=== PATIENT | male | born 1970 | race American Indian/Alaskan Native ===

== ENCOUNTER 2019-07-28 08:09 | Emergency (ER) | payer OTHER ==
[2019-07-28 08:18] VITALS: BP 174/123
--- NOTE | 2019-07-28 08:34 | Emergency Department Report ---
ED ENT HPI - General Chief complaint: Dental/Oral Stated complaint: LFT SIDE FACE/ LFT ARM PAIN Time Seen by Provider: 07/28/19 08:28 Source: patient Mode of arrival: Ambulatory Limitations: No Limitations - History of Present Illness Initial comments: This is a 49-year-old male nontoxic, well nourished in appearance, no acute signs of distress presents to the ED with c/o of left sided facial swelling that has resolved today. Patient stated that this morning he woke up around 1 AM and noticed some swelling to the left facial area but has since then resolved. Patient denies any dental pain or pain in the facial area. Patient also has a secondary complaint of left shoulder pain after heavy lifting. Patient denies any trauma or injuries. Denies decreased range of motion. Patient denies any facial swelling currently. Patient denies any numbness, tingling, fever, chills, headache, stiff neck, abdominal pain, chest pain, shortness of breath. Patient denies any drug allergies. -: This morning Severity scale (0 -10): 0 Consistency: now resolved Improves with: none Worsens with: none Associated Symptoms: denies: fever, cough, gum swelling, toothache, pain with swallowing, sore throat, tinnitus, hearing loss, discharge from ear, rhinorrhea - Related Data Previous Rx's Medication Instructions Recorded Last Taken Type ALBUTEROL Inhaler (OR & NICU) 1 puff IH QID PRN #1 inha 05/19/16 Unknown Rx [ProAir HFA Inhaler] Aspirin [Aspirin BABY CHEW TAB] 81 mg PO QDAY #30 tab.chew 05/19/16 Unknown Rx Lisinopril [Zestril] 40 mg PO QDAY #30 tablet 05/19/16 Unknown Rx Simvastatin [Zocor TAB] 10 mg PO QHS #30 tablet 05/19/16 Unknown Rx amLODIPine 5 mg PO DAILY #30 tablet 05/19/16 Unknown Rx hydroCHLOROthiazide [Hctz] 12.5 mg PO QDAY #30 capsule 05/19/16 Unknown Rx Cyclobenzaprine [Flexeril] 10 mg PO QHS PRN #10 tablet 07/28/19 Unknown Rx Naproxen 500 mg PO Q12H PRN #12 tablet 07/28/19 Unknown Rx Allergies Allergy/AdvReac Type Severity Reaction Status Date / Time No Known Allergies Allergy Verified 07/28/19 08:12 ED Dental HPI - General Chief complaint: Dental/Oral Stated complaint: LFT SIDE FACE/ LFT ARM PAIN Time Seen by Provider: 07/28/19 08:28 Source: patient Mode of arrival: Ambulatory Limitations: No Limitations - Related Data Previous Rx's Medication Instructions Recorded Last Taken Type ALBUTEROL Inhaler (OR & NICU) 1 puff IH QID PRN #1 inha 05/19/16 Unknown Rx [ProAir HFA Inhaler] Aspirin [Aspirin BABY CHEW TAB] 81 mg PO QDAY #30 tab.chew 05/19/16 Unknown Rx Lisinopril [Zestril] 40 mg PO QDAY #30 tablet 05/19/16 Unknown Rx Simvastatin [Zocor TAB] 10 mg PO QHS #30 tablet 05/19/16 Unknown Rx amLODIPine 5 mg PO DAILY #30 tablet 05/19/16 Unknown Rx hydroCHLOROthiazide [Hctz] 12.5 mg PO QDAY #30 capsule 05/19/16 Unknown Rx Cyclobenzaprine [Flexeril] 10 mg PO QHS PRN #10 tablet 07/28/19 Unknown Rx Naproxen 500 mg PO Q12H PRN #12 tablet 07/28/19 Unknown Rx Allergies Allergy/AdvReac Type Severity Reaction Status Date / Time No Known Allergies Allergy Verified 07/28/19 08:12 ED Review of Systems ROS: Stated complaint: LFT SIDE FACE/ LFT ARM PAIN Other details as noted in HPI Constitutional: denies: chills, fever Eyes: denies: eye pain, eye discharge, vision change ENT: denies: ear pain, throat pain Respiratory: denies: cough, shortness of breath, wheezing Cardiovascular: denies: chest pain, palpitations Endocrine: no symptoms reported Gastrointestinal: denies: abdominal pain, nausea, diarrhea Genitourinary: denies: urgency, dysuria Musculoskeletal: arthralgia. denies: back pain, joint swelling Skin: denies: rash, lesions Neurological: denies: headache, weakness, paresthesias Psychiatric: denies: anxiety, depression Hematological/Lymphatic: denies: easy bleeding, easy bruising ED Past Medical Hx - Past Medical History Previous Medical History?: Yes Hx Hypertension: Yes Hx Congestive Heart Failure: No Hx Diabetes: No Hx Asthma: Yes Hx COPD: No - Surgical History Additional Surgical History: back surgery - Social History Smoking Status: Current Every Day Smoker Substance Use Type: Alcohol - Medications Home Medications: Home Medications Medication Instructions Recorded Confirmed Last Taken Type ALBUTEROL Inhaler (OR & NICU) 1 puff IH QID PRN #1 inha 05/19/16 Unknown Rx [ProAir HFA Inhaler] Aspirin [Aspirin BABY CHEW TAB] 81 mg PO QDAY #30 tab.chew 05/19/16 Unknown Rx Lisinopril [Zestril] 40 mg PO QDAY #30 tablet 05/19/16 Unknown Rx Simvastatin [Zocor TAB] 10 mg PO QHS #30 tablet 05/19/16 Unknown Rx amLODIPine 5 mg PO DAILY #30 tablet 05/19/16 Unknown Rx hydroCHLOROthiazide [Hctz] 12.5 mg PO QDAY #30 capsule 05/19/16 Unknown Rx Cyclobenzaprine [Flexeril] 10 mg PO QHS PRN #10 tablet 07/28/19 Unknown Rx Naproxen 500 mg PO Q12H PRN #12 tablet 07/28/19 Unknown Rx ED Physical Exam - General Limitations: No Limitations General appearance: alert, in no apparent distress - Head Head exam: Present: atraumatic, normocephalic - Eye Eye exam: Present: normal appearance, PERRL, EOMI - ENT ENT exam: Present: normal exam, normal orophraynx, other (no facial swelling. no abscess. no cellultis. uvula midline.) - Neck Neck exam: Present: normal inspection, full ROM. Absent: tenderness, meningismus, lymphadenopathy - Respiratory Respiratory exam: Present: normal lung sounds bilaterally. Absent: respiratory distress, wheezes, rales, rhonchi, stridor, chest wall tenderness, accessory muscle use, decreased breath sounds, prolonged expiratory - Cardiovascular Cardiovascular Exam: Present: regular rate, normal rhythm, normal heart sounds - Extremities Exam Extremities exam: Present: normal inspection, full ROM, tenderness, normal capillary refill. Absent: joint swelling, calf tenderness - Expanded Upper Extremity Exam Left General: Present: normal inspection Shoulder Exam: Present: normal inspection, full ROM, tenderness (deltoid muscle area). Absent: swelling, abrasion, laceration, ecchymosis, deformity, crepidus, dislocation, erythema, tenderness over AC joint Upper Arm exam: Present: normal inspection, full ROM. Absent: tenderness, swelling Elbow exam: Present: normal inspection. Absent: full ROM, tenderness, swelling Forearm Wrist exam: Present: normal inspection, full ROM. Absent: tenderness, swelling Hand Wrist exam: Present: normal inspection, full ROM. Absent: tenderness, swelling Vascular: Present: vascular compromise, normal capillary refill - Back Exam Back exam: Present: normal inspection, full ROM. Absent: tenderness, CVA tenderness (R), CVA tenderness (L), muscle spasm, paraspinal tenderness, rash noted - Neurological Exam Neurological exam: Present: alert, oriented X3, normal gait - Psychiatric Psychiatric exam: Present: normal affect, normal mood - Skin Skin exam: Present: warm, dry, intact, normal color. Absent: rash ED Course Vital Signs 07/28/19 08:16 Temperature 98.4 F Pulse Rate 71 Respiratory 18 Rate Blood Pressure 174/123 O2 Sat by Pulse 95 Oximetry - Reevaluation(s) Reevaluation #1: 07/28/19 08:54 Patient is speaking in full sentences with no signs of distress noted. ED Medical Decision Making - Medical Decision Making This is a 49-year-old male that presents with left muscle strain in the shoulder area. Patient is stable and was examined by me. Facial examination is within normal limits. Patient stated symptoms has resolved. I will treat patient with Flexeril and Motrin. He was instructed not to operate any machinery while taking Flexeril as this may cause drowsiness. Patient was instructed to Follow- up with a primary care doctor in 3-5 days or if symptoms worsen and continue return to emergency room as soon as possible. At time of discharge, the patient does not seem toxic or ill in appearance. No acute signs of distress noted. Patient agrees to discharge treatment plan of care. No further questions noted by the patient. Critical care attestation.: If time is entered above; I have spent that time in minutes in the direct care of this critically ill patient, excluding procedure time. ED Disposition Clinical Impression: Muscle strain of left shoulder Qualifiers: Encounter type: initial encounter Qualified Code(s): S46.912A - Strain of unspecified muscle, fascia and tendon at shoulder and upper arm level, left arm, initial encounter Disposition: TO HOME OR SELFCARE Is pt being admited?: No Does the pt Need Aspirin: No Condition: Stable Instructions: Muscle Strain (ED), Cyclobenzaprine (By mouth) Additional Instructions: Follow-up with a primary care doctor in 3-5 days or if symptoms worsen and continue return to emergency room as soon as possible. Take ibuprofen and Flexeril as prescribed. Do not operate heavy machinery while taking Flexeril due to sedation Prescriptions: Cyclobenzaprine [Flexeril] 10 mg PO QHS PRN #10 tablet PRN Reason: Muscle Spasm Naproxen 500 mg PO Q12H PRN #12 tablet PRN Reason: Pain , Severe (7-10) Referrals: PRIMARY CAREMD [Primary Care Provider] - 3-5 Days ROMA GONZALEZ MD [Staff Physician] - 3-5 Days FABRIZIO WILSON MD [Staff Physician] - 3-5 Days [facility] [Outside] - 3-5 Days Forms: Work/School Release Form(ED)
== END 2019-07-28 09:03 | disposition home or self-care (01) ==
LOC: ED 08:09
DX: S46.912A Strain of unspecified muscle, fascia and tendon at shoulder and upper arm level, left arm, initial encounter (principal); I10 Essential (primary) hypertension; F17.200 Nicotine dependence, unspecified, uncomplicated; J45.909 Unspecified asthma, uncomplicated; Z98.890 Other specified postprocedural states; Z79.899 Other long term (current) drug therapy; X50.0XXA Overexertion from strenuous movement or load, initial encounter; Y93.89 Activity, other specified; Y92.89 Other specified places as the place of occurrence of the external cause; Y99.8 Other external cause status
CPT/HCPCS: 99282

== ENCOUNTER 2020-01-27 17:44 | Inpatient (IN) | payer OTHER ==
--- NOTE | 2020-01-27 17:54 | Emergency Department Report ---
ED Neuro Deficit HPI - General Stated Complaint: STROKE Time Seen by Provider: 01/27/20 17:51 Source: EMS Mode of arrival: Stretcher - History of Present Illness Initial Comments: 49-year-old male with history of hypertension, borderline diabetes, presents to ED with headache and left-sided weakness. Patient states approximately 45 minutes ago after eating barbecue ribs, patient began to have a left-sided headache that radiated down to the back of his left shoulder. Patient reportedly told his that he felt like he was having a stroke. Spoke w/ patient's over the phone (Yfn Sanchez [phone]). states patient closes eyes and started "flinching." When asked if he like a seizure, was unable to say whether or not it was. states he was minimally responsive during this time but states his eyes were open. No history of CVA in the past. Patient is not currently on blood thinners, only aspirin. Patient was transported to ED by EMS, with systolic 200s. Patient now reports that his headache is mostly resolved. States that his and weakness have both resolved as well. Patient states his headache was initially 8 out of 10, currently 4 out of 10. Patient with negative ROS for all COVID-19 questioning (fever, sore throat, cough, shortness of breath, loss of smell or taste, vomiting or diarrhea, known exposure to anyone who has tested positive). -: minutes(s) (45) Location: left arm Presenting Symptoms: Present: Weak/Paralyzed One Side History of same: No Place: home Severity: severe Quality: weak, tingling Improves With: none Worsens With: none On Anticoagulants: No Associated Symptoms: denies: cough, fever/chills - Related Data Home Medications: Previous Rx's Medication Instructions Recorded Last Taken Type Albuterol INH(or & Nicu Only) 1 puff IH QID PRN #1 inha 05/19/16 Unknown Rx [ProAir HFA Inhaler] Aspirin [Aspirin BABY CHEW TAB] 81 mg PO QDAY #30 tab.chew 05/19/16 Unknown Rx Lisinopril [Zestril] 40 mg PO QDAY #30 tablet 05/19/16 Unknown Rx Simvastatin [Zocor TAB] 10 mg PO QHS #30 tablet 05/19/16 Unknown Rx amLODIPine 5 mg PO DAILY #30 tablet 05/19/16 Unknown Rx hydroCHLOROthiazide [Hctz] 12.5 mg PO QDAY #30 capsule 05/19/16 Unknown Rx Cyclobenzaprine [Flexeril] 10 mg PO QHS PRN #10 tablet 07/28/19 Unknown Rx Naproxen 500 mg PO Q12H PRN #12 tablet 07/28/19 Unknown Rx Allergies/Adverse Reactions: Allergies Allergy/AdvReac Type Severity Reaction Status Date / Time No Known Allergies Allergy Verified 01/27/20 18:24 ED Review of Systems ROS: Stated complaint: STROKE Other details as noted in HPI Comment: All other systems reviewed and negative Constitutional: denies: chills, fever ENT: denies: throat pain Respiratory: denies: cough, shortness of breath Cardiovascular: denies: chest pain Gastrointestinal: denies: vomiting, diarrhea Neurological: headache, paresthesias ED Past Medical Hx - Past Medical History Hx Hypertension: Yes Hx Congestive Heart Failure: No Hx Diabetes: No Hx Asthma: Yes Hx COPD: No - Surgical History Additional Surgical History: back surgery - Social History Smoking Status: Current Every Day Smoker Substance Use Type: Alcohol - Medications Home Medications: Home Medications Medication Instructions Recorded Confirmed Last Taken Type Albuterol INH(or & Nicu Only) 1 puff IH QID PRN #1 inha 05/19/16 Unknown Rx [ProAir HFA Inhaler] Aspirin [Aspirin BABY CHEW TAB] 81 mg PO QDAY #30 tab.chew 05/19/16 Unknown Rx Lisinopril [Zestril] 40 mg PO QDAY #30 tablet 05/19/16 Unknown Rx Simvastatin [Zocor TAB] 10 mg PO QHS #30 tablet 05/19/16 Unknown Rx amLODIPine 5 mg PO DAILY #30 tablet 05/19/16 Unknown Rx hydroCHLOROthiazide [Hctz] 12.5 mg PO QDAY #30 capsule 05/19/16 Unknown Rx Cyclobenzaprine [Flexeril] 10 mg PO QHS PRN #10 tablet 07/28/19 Unknown Rx Naproxen 500 mg PO Q12H PRN #12 tablet 07/28/19 Unknown Rx ED Neuro Physical Exam - General General appearance: alert, in no apparent distress Suspected Stroke: Yes - Head Head exam: Present: atraumatic, normocephalic - Eye Eye exam: Present: normal appearance, PERRL, EOMI - ENT ENT exam: Present: mucous membranes moist - Neck Neck exam: Present: normal inspection, full ROM. Absent: tenderness, meningismus - Respiratory Respiratory exam: Present: normal lung sounds bilaterally. Absent: respiratory distress - Cardiovascular Cardiovascular Exam: Present: regular rate, normal rhythm - GI/Abdominal GI/Abdominal exam: Present: soft. Absent: distended, tenderness - Extremities Exam Extremities exam: Present: normal inspection - Neurological Exam Neurological exam: Present: alert, oriented X3, CN II-XII intact. Absent: motor sensory deficit - NIHSS Assessment Interval: Baseline 1a. Level of Consciousness: alert/keenly responsive 1b. LOC Questions: answers both correctly 1c. LOC Commands: performs tasks correctly 2. Best Gaze: normal 3. Visual: no visual loss 4. Facial Palsy: normal symmetrical movement 5b. Motor Arm Right: no drift 5a. Motor Arm Left: no drift 6a. Motor Leg Left: no drift 6b. Motor Leg Right: no drift 7. Limb Ataxia: absent 8. Sensory: normal 9. Best Language: no aphasia 10. Dysarthria: normal 11. Extinction/Inattention: no abnormality Total Score: 0 Stroke Severity: No Stroke Symptoms - Psychiatric Psychiatric exam: Present: normal affect, normal mood - Skin Skin exam: Present: warm, dry, intact, normal color ED Course Vital Signs 01/27/20 01/27/20 01/27/20 18:18 18:30 18:45 Temperature Pulse Rate 50 L 58 L Respiratory 12 11 L 12 Rate Blood Pressure Blood Pressure [Right] O2 Sat by Pulse 97 97 97 Oximetry 01/27/20 01/27/20 01/27/20 19:04 19:13 19:15 Temperature 98.3 F Pulse Rate 68 66 Respiratory 18 11 L Rate Blood Pressure 149/95 Blood Pressure 177/116 [Right] O2 Sat by Pulse 96 97 97 Oximetry 01/27/20 01/27/20 01/27/20 19:30 19:45 20:01 Temperature Pulse Rate 69 60 75 Respiratory 23 14 27 H Rate Blood Pressure 141/95 145/84 141/90 Blood Pressure [Right] O2 Sat by Pulse 95 95 95 Oximetry 01/27/20 01/27/20 01/27/20 20:15 20:31 20:45 Temperature Pulse Rate 66 64 74 Respiratory 19 12 19 Rate Blood Pressure 144/92 138/83 144/92 Blood Pressure [Right] O2 Sat by Pulse 96 98 97 Oximetry 01/27/20 01/27/20 01/27/20 21:00 21:15 21:36 Temperature Pulse Rate 69 72 64 Respiratory 8 L 16 Rate Blood Pressure 153/98 159/101 Blood Pressure [Right] O2 Sat by Pulse 97 97 Oximetry 01/27/20 21:45 Temperature Pulse Rate 62 Respiratory 22 Rate Blood Pressure 151/83 Blood Pressure [Right] O2 Sat by Pulse 98 Oximetry - Lab Data Result diagrams: 01/27/20 17:52 01/27/20 17:52 Lab Results 01/27/20 01/27/20 01/27/20 Range/Units 17:52 17:52 17:52 WBC 6.9 (4.5-11.0) K/mm3 RBC 5.14 H (3.65-5.03) M/mm3 Hgb 14.7 (11.8-15.2) gm/dl Hct 45.0 (35.5-45.6) % MCV 88 (84-94) fl MCH 29 (28-32) pg MCHC 33 (32-34) % RDW 15.2 (13.2-15.2) % Plt Count 198 (140-440) K/mm3 Lymph % (Auto) 36.7 H (13.4-35.0) % [place] % (Auto) 7.8 H (0.0-7.3) % Eos % (Auto) 4.3 (0.0-4.3) % Baso % (Auto) 0.8 (0.0-1.8) % Lymph # 2.5 (1.2-5.4) K/mm3 [place] # 0.5 (0.0-0.8) K/mm3 Eos # 0.3 (0.0-0.4) K/mm3 Baso # 0.1 (0.0-0.1) K/mm3 Seg Neutrophils % 50.4 (40.0-70.0) % Seg Neutrophils # 3.5 (1.8-7.7) K/mm3 PT 13.1 (12.2-14.9) Sec. INR 1.01 (0.87-1.13) APTT 27.8 (24.2-36.6) Sec. Sodium 144 (137-145) mmol/L Potassium 4.2 (3.6-5.0) mmol/L Chloride 102.6 (98-107) mmol/L Carbon Dioxide 27 (22-30) mmol/L Anion Gap 19 mmol/L BUN 20 (9-20) mg/dL Creatinine 1.0 (0.8-1.5) mg/dL Estimated GFR > 60 ml/min BUN/Creatinine Ratio 20 % Glucose 131 H (75-100) mg/dL Calcium 9.3 (8.4-10.2) mg/dL Troponin T < 0.010 (0.00-0.029) ng/mL - EKG Data -: EKG Interpreted by Me EKG shows normal: sinus rhythm Rate: normal Interpretation: other (RBBB, lateral T wave inversions) - Radiology Data Radiology results: report reviewed, image reviewed - Medical Decision Making 49 yo M presented to ED w/ elevated BP, BURDEN, left sided weakness and numbness. Symptoms have since resolved. BP has improved w/o intervention. CT Head and CTA Head/Neck negative for any acute abnormalities. Pt seen and evaluatied by teleneurologist. Pt currently at baseline w/ NIH score of 0. Will admit to hospitalist, Dr Roche, for TIA workup. - Differential Diagnosis CVA, TIA, dissection, complex migraine Critical Care Time: Yes Critical care time in (mins) excluding proc time.: 35 Critical care attestation.: If time is entered above; I have spent that time in minutes in the direct care of this critically ill patient, excluding procedure time. Critical Care Time: 35 min ED Disposition Clinical Impression: TIA (transient ischemic attack) Disposition: -09 OP ADMIT IP TO THIS HOSP Is pt being admited?: Yes Condition: Stable Time of Disposition: 20:34
--- NOTE | 2020-01-27 18:21 | Emergency Department Report ---
ED Neuro Deficit HPI - General Chief Complaint: Headache Stated Complaint: STROKE Time Seen by Provider: 01/27/20 17:51 Source: EMS Mode of arrival: Stretcher - History of Present Illness Initial Comments: Date of Service: 01/27/2020 17:47:08 Impression: Rule Out Acute Ischemic Stroke differential includes stroke TIA dissection migraine Comments/Sign-Out: the patient had transient left-sided headache with pain radiating into his left arm and shoulder but also some left leg numbness. For this reason a pure arm radiculopathy seems unlikely differential could still include myelopathic process or TIA stroke. Headache not typical for thunderclap and with going down to a 4 spontaneously without significant treatment and resolution of any focal neurologic deficit this back dissection venous sinus thrombosis or other very worrisome etiology aside from stroke unlikely. Do recommend however CT Angioof the head and neck in the emergency department to exclude dissection or vasospasm.if this does not show any remarkable findings the patient can be admitted for MRI of the brain inpatient neurology consultation and stroke workup given that he did have focal weakness and numbness of the left side. At the present moment there is no appreciable focal deficit in terms of drift or sensory loss so no TPA recommended. Metrics: Last Known Well: 01/27/2020 17:15:00 [employer] Notification Time: 01/27/2020 17:46:42 Arrival Time: 01/27/2020 17:44:00 Stamp Time: 01/27/2020 17:47:08 Time First Login Attempt: 01/27/2020 17:50:03 Video Start Time: 01/27/2020 18:02:53 Symptoms: left sided pain and weakness NIHSS Start Assessment Time: 01/27/2020 18:04:14 Patient is not a candidate for tPA. Patient was not deemed candidate for tPA thrombolytics because of Resolved symptoms (no residual disabling symptoms). Video End Time: 01/27/2020 18:16:19 CT head showed no acute hemorrhage or acute core infarct. Clinical Presentation is not Suggestive of Large Vessel Occlusive Disease Radiologist was not called back for review of advanced imaging because na ED Physician notified of diagnostic impression and management plan on 01/27/2020 18:16:18 Our recommendations are outlined below. Recommendations: Activate Stroke Protocol Admission/Order Set Stroke/Telemetry Floor Neuro Checks Bedside Swallow Eval DVT Prophylaxis IV Fluids, Normal Saline Head of Bed 30 Degrees Euglycemia and Avoid Hyperthermia (PRN Acetaminophen) the patient may continue full-strength aspirin Sign Out: Discussed with Emergency Department Provider History of Present Illness: Patient is a 49 year old Male. Patient was brought by EMS for symptoms of left sided pain and weakness he says he developed a BURDEN after eating. this Started about 17:15. His left shoulder went weak with heaache behind his ear. Also tinging in left foot . Has HTN asthma. Takes asa daily. he says the headache went from more mild to moderate to an 8 out of 10 in severity and is now a 4 out of 10 in severity. When EMS arrived apparently his blood pressure was about 200 and it sounds like he was having some speech difficulty but no seizure-like activity. He's never had a headache like this before. No history of stroke or migraines. Examination: BP(177/116), Blood Glucose(123) 1A: Level of Consciousness - Alert; keenly responsive + 0 1B: Ask Month and Age - Both Questions Right + 0 1C: Blink Eyes & Squeeze Hands - Performs Both Tasks + 0 2: Test Horizontal Extraocular Movements - Normal + 0 3: Test Visual Rodarte - No Visual Loss + 0 4: Test Facial Palsy (Use Grimace if Obtunded) - Normal symmetry + 0 5A: Test Left Arm Motor Drift - No Drift for 10 Seconds + 0 5B: Test Right Arm Motor Drift - No Drift for 10 Seconds + 0 6A: Test Left Leg Motor Drift - No Drift for 5 Seconds + 0 6B: Test Right Leg Motor Drift - No Drift for 5 Seconds + 0 7: Test Limb Ataxia (FNF/Heel-Davies) - No Ataxia + 0 8: Test Sensation - Normal; No sensory loss + 0 9: Test Language/Aphasia - Normal; No aphasia + 0 10: Test Dysarthria - Normal + 0 11: Test Extinction/Inattention - No abnormality + 0 NIHSS Score: 0 Patient/Family was informed the Neurology Consult would happen via TeleHealth consult by way of interactive audio and video telecommunications and consented to receiving care in this manner. Due to the immediate potential for life-threatening deterioration due to underlying acute neurologic illness, I spent 35 minutes providing critical care. This time includes time for face to face visit via telemedicine, review of medical records, imaging studies and discussion of findings with providers, the patient and/or family. Dr Padmini Rodriguez [employer] - Related Data Home Medications: Previous Rx's Medication Instructions Recorded Last Taken Type Albuterol INH(or & Nicu Only) 1 puff IH QID PRN #1 inha 05/19/16 Unknown Rx [ProAir HFA Inhaler] Aspirin [Aspirin BABY CHEW TAB] 81 mg PO QDAY #30 tab.chew 05/19/16 Unknown Rx Lisinopril [Zestril] 40 mg PO QDAY #30 tablet 05/19/16 Unknown Rx Simvastatin [Zocor TAB] 10 mg PO QHS #30 tablet 05/19/16 Unknown Rx amLODIPine 5 mg PO DAILY #30 tablet 05/19/16 Unknown Rx hydroCHLOROthiazide [Hctz] 12.5 mg PO QDAY #30 capsule 05/19/16 Unknown Rx Cyclobenzaprine [Flexeril] 10 mg PO QHS PRN #10 tablet 07/28/19 Unknown Rx Naproxen 500 mg PO Q12H PRN #12 tablet 07/28/19 Unknown Rx Allergies/Adverse Reactions: Allergies Allergy/AdvReac Type Severity Reaction Status Date / Time No Known Allergies Allergy Verified 07/28/19 08:12 ED Review of Systems ROS: Stated complaint: STROKE Other details as noted in HPI ED Past Medical Hx - Past Medical History Hx Hypertension: Yes Hx Congestive Heart Failure: No Hx Diabetes: No Hx Asthma: Yes Hx COPD: No - Surgical History Additional Surgical History: back surgery - Social History Smoking Status: Current Every Day Smoker Substance Use Type: Alcohol - Medications Home Medications: Home Medications Medication Instructions Recorded Confirmed Last Taken Type Albuterol INH(or & Nicu Only) 1 puff IH QID PRN #1 inha 05/19/16 Unknown Rx [ProAir HFA Inhaler] Aspirin [Aspirin BABY CHEW TAB] 81 mg PO QDAY #30 tab.chew 05/19/16 Unknown Rx Lisinopril [Zestril] 40 mg PO QDAY #30 tablet 05/19/16 Unknown Rx Simvastatin [Zocor TAB] 10 mg PO QHS #30 tablet 05/19/16 Unknown Rx amLODIPine 5 mg PO DAILY #30 tablet 05/19/16 Unknown Rx hydroCHLOROthiazide [Hctz] 12.5 mg PO QDAY #30 capsule 05/19/16 Unknown Rx Cyclobenzaprine [Flexeril] 10 mg PO QHS PRN #10 tablet 07/28/19 Unknown Rx Naproxen 500 mg PO Q12H PRN #12 tablet 07/28/19 Unknown Rx ED Neuro Physical Exam - General Suspected Stroke: Yes - NIHSS Assessment Interval: Baseline 1a. Level of Consciousness: alert/keenly responsive 1b. LOC Questions: answers both correctly 1c. LOC Commands: performs tasks correctly 2. Best Gaze: normal 3. Visual: no visual loss 4. Facial Palsy: normal symmetrical movement 5b. Motor Arm Right: no drift 5a. Motor Arm Left: no drift 6a. Motor Leg Left: no drift 6b. Motor Leg Right: no drift 7. Limb Ataxia: absent 8. Sensory: normal 9. Best Language: no aphasia 10. Dysarthria: normal 11. Extinction/Inattention: no abnormality Total Score: 0 Stroke Severity: No Stroke Symptoms Critical care attestation.: If time is entered above; I have spent that time in minutes in the direct care of this critically ill patient, excluding procedure time. ED Disposition Clinical Impression: TIA (transient ischemic attack) Disposition: OP ADMIT IP TO THIS HOSP Is pt being admited?: Yes Condition: Stable Referrals: PRIMARY CARE, [Primary Care Provider] - 3-5 Days
--- NOTE | 2020-01-27 18:25 | Cat Scan Report ---
CT HEAD WITHOUT CONTRAST INDICATION / CLINICAL INFORMATION: neuro deficits <6hrs or sx present upon awakening. TECHNIQUE: All CT scans at this location are performed using CT dose reduction for ALARA by means of automated e xposure control. COMPARISON: None available. FINDINGS: HEMORRHAGE: No evidence of intracranial hemorrhage or extra-axial fluid collection. EXTRA-AXIAL SPACES: Cortical sulci, sylvian fissures and basilar cisterns have an unremarkable appear ance. VENTRICULAR SYSTEM: The ventricular system is of normal size and configuration. CEREBRAL PARENCHYMA: No areas of abnormal brain parenchymal attenuation are identified. There is no i ndication of recent infarction. MIDLINE SHIFT OR HERNIATION: There is no mass effect. CEREBELLUM / BRAINSTEM: Brainstem and cerebellum have an unremarkable appearance. SELLA TURCICA: Sella turcica is dilated but largely filled with cerebrospinal fluid attenuation mater ial consistent with "empty sella turcica". INTRACRANIAL VESSELS:No abnormalities are identified on this noncontrast head CT. ORBITS: Bilateral exophthalmos is noted. Extraocular muscles have a normal appearance. Correlation wi thyroid function laboratory evaluation is suggested. SOFT TISSUES of HEAD: No significant abnormality. CALVARIUM: Evaluation of bone windows reveals no abnormalities. PARANASAL SINUSES / MASTOID AIR CELLS: Attention cysts versus polyps are suspected at the base of bot h maxillary sinuses. Opacification of a posterior ethmoid air cells observed on the left. Paranasal s inuses otherwise appear clear. Normal and symmetrical pneumatization of the mastoid air cells is obse rved. ADDITIONAL FINDINGS: None. IMPRESSION: 1. No acute intracranial abnormality. Signer Name: Srikanth Cherry MD Signed: 01/27/2020 6:21 PM Workstation Name: [id number]
[2020-01-27 18:56] LABS: Basophils # (Auto) 0.1 K/mm3 (0.0-0.1); Basophils % (Auto) 0.8 % (0.0-1.8); Eosinophils # (Auto) 0.3 K/mm3 (0.0-0.4); Eosinophils % (Auto) 4.3 % (0.0-4.3); Hemoglobin 14.7 gm/dl (11.8-15.2); Lymphocytes # (Auto) 2.5 K/mm3 (1.2-5.4); Lymphocytes % (Auto) 36.7 % (13.4-35.0); Mean Corpuscular HGB Conc 33 % (32-34); Mean Corpuscular Volume 88 fl (84-94); Monocytes # (Auto) 0.5 K/mm3 (0.0-0.8); Monocytes % (Auto) 7.8 % (0.0-7.3); Platelet Count 198 K/mm3 (140-440); Red Blood Count 5.14 M/mm3 (3.65-5.03); Red Cell Distribution Width 15.2 % (13.2-15.2)
[2020-01-27 19:04] LABS: INR 1.01 (0.87-1.13)
[2020-01-27 19:05] LABS: Partial Thromboplastin Time 27.8 Sec. (24.2-36.6)
[2020-01-27 19:07] LABS: BUN/Creatinine Ratio 20; Blood Urea Nitrogen 20 mg/dL (9-20); Calcium 9.3 mg/dL (8.4-10.2); Hemolysis Index 6
--- NOTE | 2020-01-27 20:03 | Cat Scan Report ---
CTA neck without and with intravenous contrast material CLINICAL HISTORY: headache, left sided weakness TECHNIQUE: Following acquisition of a timing bolus 0.625 mm thick contiguous axial scans were obtained from aort ic arch to the skull base during rapid bolus intravenous contrast infusion. In addition to evaluation of axial source images multiplanar reconstructions were produced and reviewed for this report. 3 elvin ne MIP reconstructions were produced and reviewed. FINDINGS: Thoracic aorta:No abnormalities are identified along the course of the thoracic aorta..The origins of the great vessels have an unremarkable appearance. Brachiocephalic artery, left common carotid arter y origin and left subclavian artery all have an unremarkable appearance. Right carotid artery:No abnormalities are seen along the course of the RCCA, at the right carotid bif urcation or along the cervical portions of the FAIZA. Left carotid artery: Minimally calcified atherosclerotic plaque is seen along the medial aspect of th e proximal LICA. Is no associated stenosis. No additional abnormalities are noted along the course of the left common carotid artery, at the left carotid bifurcation or along the course of the cervical segments of the LICA. Posterior circulation:The vertebral arteries have an unremarkable appearance. Both vertebral arteries contribute to the basilar artery origin. The basilar artery has an unremarkable appearance. The degree of stenosis, if any, is determined utilizing NASCET like criteria. In this case there is no indication of hemodynamically significant stenosis at the carotid bifurcations or elsewhere. Thyroid gland is diffusely enlarged with no focal thyroid lesions identified consistent with thyroid goiter. Incidental note is made of ossification of the stylohyoid ligament bilaterally. Evaluation of the nonvascular soft tissue structures reveal no additional abnormality. There is no indication of c ervical lymphadenopathy. No abnormalities are seen along the course of the airway. Visualized portion s of the parotid glands and the submandibular salivary glands have a normal appearance. Evaluation of the lung apices reveals no evidence of lung nodule or infiltrate. Evaluation of the cervical spine revealed no significant abnormalities. IMPRESSION: 1. No indication of hemodynamically significant stenosis at the carotid bifurcations or elsewhere. 2. Thyroid goiter. Contrast dose report: Omnipaque 350: 100 ml, administered intravenously All CT examinations performed at this facility utilize modulated dose reduction, iterative reconstruc tion or weight-based dosing, as appropriate, to obtain a radiation dose which is as low as can reason ably be achieved. Signer Name: Srikanth Cherry MD Signed: 01/27/2020 7:59 PM Workstation Name: [id number]
--- NOTE | 2020-01-27 20:07 | Cat Scan Report ---
CTA head with intravenous contrast CLINICAL HISTORY: headache, left sided weakness TECHNIQUE: 0.625 mm thick contiguous axial scans were obtained from the skull base to the skull vertex during r apid bolus administration of intravenous contrast material. Multiplanar reconstructions were produced in the coronal and sagittal planes. In addition 3 plane MIP instructions were produced and reviewed for this report. The axial source images and reconstructed images were reviewed for this report. CONTRAST DOSE REPORT: Omnipaque 350: 100 ml administered intravenously. All CT scans at this location are performed using CT dose reduction for ALARA by means of automated e xposure control. FINDINGS: Internal carotid arteries:Ayaz, cavernous, opthalmic, clinoid and supraclinoid segments of the ICAs have an unremarkable appearance. Middle cerebral arteries: Bilaterally symmetrical M1 segments are demonstrated. No abnormalities are seen to involve the insular or opercular branches. Anterior cerebral arteries: Diminutive A1 segments of the anterior cerebral arteries are noted bilate rally. The A2 segments and pericallosal branches have an unremarkable appearance. Vertebral arteries: Left vertebral artery is dominant. Both vertebral arteries contribute to the basi lar artery origin. Basilar artery:No abnormality Posterior cerebral arteries:No abnormalities. Dural sinuses: Dural venous sinuses are well demonstrated on this exam. There is no evidence of dural sinus thrombosis. IMPRESSION: 1. No significant abnormalities demonstrated on CTA head. Signer Name: Srikanth Cherry MD Signed: 01/27/2020 8:03 PM Workstation Name: [id number]
[2020-01-27] MEDS ORDERED: ASPIRIN 325 MG TAB PO ONE (21:35)
[2020-01-27] MEDS ORDERED: MORPHINE 4 MG/1 ML INJ IV PRN (21:51)
[2020-01-27] MEDS ORDERED: METOCLOPRAMIDE 10 MG TAB PO PRN (21:51)
[2020-01-27] MEDS ORDERED: ACETAMINOPHEN 325 MG TAB PO PRN ×2 (21:51)
[2020-01-27] MEDS ORDERED: PROMETHAZINE 25 MG RECT SUPP PR PRN (21:51)
[2020-01-27] MEDS ORDERED: MAGNESIUM HYDROXIDE (MOM) ORAL LIQD UDC PO PRN ×2 (21:51)
[2020-01-27] MEDS ORDERED: ONDANSETRON 4 MG/2 ML INJ IV PRN ×2 (21:51)
[2020-01-27 21:59] VITALS: BP 151/83
--- NOTE | 2020-01-27 22:31 | History and Physical Report ---
History of Present Illness Date of examination: 01/27/20 Date of admission: 01/27/20 21:36 Chief complaint: left-sided numbness Headache History of present illness: 49-year-old -[place] male with known history of hypertension presenting to the emergency room with headache and left-sided weakness and numbness. He states he was eating steaks when he suddenly started having headache especially on the left side of his head and then radiating towards the left shoulder. Patient denies any history of seizures, no history of recent fall or trauma to head. He denies any fever or chills, no nausea vomiting, no diarrhea, no chest pain or shortness of breath. Patient denies any recent travel and no sick contacts. En route to the ER patient's blood pressure was said to be elevated with systolic in the 200s. However upon arrival in the emergency room headache was said to have resolved. Evaluation in the emergency room including CT of the head and CT angiogram was unremarkable. He was also evaluated by the teleneurologist and found not to be a TPA candidate. Numbness and weakness on the left side of the body had also resolved upon arrival in the emergency room. Past History Past Medical History: hypertension, hyperlipidemia, other (Asthma) Past Surgical History: Other (Back surgery in the past) Social history: smoking (Smokes half a pack of cigarette daily), alcohol abuse (Drinks alcohol occasionally) Family history: stroke (Father and grandmother of stroke) Medications and Allergies Allergies Allergy/AdvReac Type Severity Reaction Status Date / Time No Known Allergies Allergy Verified 01/27/20 18:24 Home Medications Medication Instructions Recorded Confirmed Last Taken Type Albuterol INH(or & Nicu Only) 1 puff IH QID PRN #1 inha 05/19/16 Unknown Rx [ProAir HFA Inhaler] Aspirin [Aspirin BABY CHEW TAB] 81 mg PO QDAY #30 tab.chew 05/19/16 Unknown Rx Lisinopril [Zestril] 40 mg PO QDAY #30 tablet 05/19/16 Unknown Rx Simvastatin [Zocor TAB] 10 mg PO QHS #30 tablet 05/19/16 Unknown Rx amLODIPine 5 mg PO DAILY #30 tablet 05/19/16 Unknown Rx hydroCHLOROthiazide [Hctz] 12.5 mg PO QDAY #30 capsule 05/19/16 Unknown Rx Cyclobenzaprine [Flexeril] 10 mg PO QHS PRN #10 tablet 07/28/19 Unknown Rx Naproxen 500 mg PO Q12H PRN #12 tablet 07/28/19 Unknown Rx Active Meds: Active Medications Acetaminophen (Tylenol) 650 mg PO Q4H PRN PRN Reason: Pain MILD(1-3)/Fever >100.5/BURDEN Aspirin (Aspirin) 325 mg PO QDAY MORIS Bisacodyl (Dulcolax) 10 mg OR QDAY PRN PRN Reason: Constipation Magnesium Hydroxide (Milk Of Magnesia) 30 ml PO Q4H PRN PRN Reason: Constipation Metoclopramide HCl (Reglan) 10 mg PO Q6H PRN PRN Reason: Nausea And Vomiting Morphine Sulfate (Morphine) 4 mg IV Q4H PRN PRN Reason: Pain , Severe (7-10) Ondansetron HCl (Zofran) 4 mg IV Q8H PRN PRN Reason: Nausea And Vomiting Promethazine HCl (Phenergan) 25 mg OR Q6H PRN PRN Reason: Nausea And Vomiting Sodium Chloride (Sodium Chloride Flush Syringe 10 Ml) 10 ml IV BID MORIS Sodium Chloride (Sodium Chloride Flush Syringe 10 Ml) 10 ml IV PRN PRN PRN Reason: LINE FLUSH Review of Systems Constitutional: no fever, no chills Cardiovascular: no chest pain, no palpitations Respiratory: no cough, no shortness of breath Gastrointestinal: no abdominal pain, no nausea, no vomiting, no diarrhea Genitourinary Male: no dysuria, no hematuria Musculoskeletal: no neck pain, no low back pain Integumentary: no rash, no pruritis Neurological: numbness, headaches, no syncope Psychiatric: no anxiety, no depression Exam - Constitutional Vitals: Temp Pulse Resp BP Pulse Ox 98.3 F 62 22 151/83 98 01/27/20 19:13 01/27/20 21:45 01/27/20 21:45 01/27/20 21:45 01/27/20 21:45 General appearance: Present: no acute distress, well-nourished - EENT Eyes: Present: PERRL, EOM intact ENT: hearing intact, clear oral mucosa, dentition normal - Neck Neck: Present: supple, normal ROM - Respiratory Respiratory effort: normal Respiratory: bilateral: CTA - Cardiovascular Rhythm: regular Heart Sounds: Present: S1 & S2 - Extremities Extremities: no ischemia, pulses intact, pulses symmetrical, No edema, Full ROM Peripheral Pulses: within normal limits - Abdominal General gastrointestinal: Present: soft, non-tender, non-distended - Integumentary Integumentary: Present: clear, warm, dry - Musculoskeletal Musculoskeletal: strength equal bilaterally - Psychiatric Psychiatric: appropriate mood/affect, intact judgment & insight, cooperative - Neurologic Neurologic: CNII-XII intact, moves all extremities HEART Score - HEART Score Troponin: Troponin T < 0.010 ng/mL (0.00-0.029) 01/27/20 17:52 Results - Labs CBC & Chem 7: 01/27/20 17:52 01/27/20 17:52 Labs: Abnormal lab results 01/27/20 01/27/20 01/27/20 Range/Units 17:52 17:52 Unknown RBC 5.14 H (3.65-5.03) M/mm3 Lymph % (Auto) 36.7 H (13.4-35.0) % [place] % (Auto) 7.8 H (0.0-7.3) % Thrombin Time 13.2 L (15.1-19.6) Sec. Glucose 131 H (75-100) mg/dL Assessment and Plan - Patient Problems (1) TIA (transient ischemic attack) Status: Acute Plan to address problem: Patient admitted and placed on telemetry. Will start on daily aspirin. Patient will be scheduled for MRI of the brain and also carotid Doppler. We will request neurology evaluation and recommendation. (2) Hypertension Status: Acute Plan to address problem: We will resume patient's routine home medications and monitor vital signs closely. (3) DVT prophylaxis Status: Acute Plan to address problem: Patient be placed on subcutaneous heparin. (4) Full code status Status: Acute
--- NOTE | 2020-01-28 01:20 | Event Note ---
Date: 01/28/20 Nursing staff called to inform me that patient signed out AGAINST MEDICAL ADVICE. Patient was said to have indicated that he is doing well now and also feels insurance may not be able to pay for his hospital stay.
[2020-01-28] MEDS ORDERED: ASPIRIN 325 MG TAB PO SCH (10:00)
== END 2020-01-27 23:32 | disposition left against medical advice (07) | DRG 69 ==
LOC: ED 17:44 → 4A 21:36
PROVIDERS: ADMIT Internal Medicine Geriatric Medicine; ATTEND Internal Medicine Geriatric Medicine
DX: G45.9 Transient cerebral ischemic attack, unspecified (principal); I10 Essential (primary) hypertension; J45.909 Unspecified asthma, uncomplicated; E78.5 Hyperlipidemia, unspecified; F17.210 Nicotine dependence, cigarettes, uncomplicated; Z82.3 Family history of stroke; R73.03 Prediabetes
CPT/HCPCS: 36415; 70450; 70496; 70498; 80048; 82962; 84484; 85025; 85610; 85670; 85730; 93005; G0378; Q9967

== ENCOUNTER 2021-04-04 00:58 | Emergency (ER) | payer OTHER ==
[2021-04-04 02:16] VITALS: BP 159/98
--- NOTE | 2021-04-04 02:45 | Emergency Department Report ---
ED General Adult HPI - General Chief complaint: Skin Rash Stated complaint: BURN ON RT SIDE Source: patient Mode of arrival: Ambulatory Limitations: No Limitations - History of Present Illness Initial comments: Patient is a 50-year-old -[place] male with a history of asthma, obstructive sleep apnea and hypertension who presents to the ED with complaint of acute onset persistent nasal congestion and a sensation of blocked nasal passages after using CPAP machine about 2 hours ago. Patient denies chest pain, shortness of breath, fever, chills, sore throat, headache, dizziness, syncope, abdominal pain, nausea and vomiting, fever and chills. MD Complaint: Nasal congestion after using CPAP machine -: Sudden, hour(s) (2) Location: face Radiation: non-radiation Severity scale (0 -10): 2 Quality: dull Consistency: constant Improves with: none Worsens with: none Associated Symptoms: denies other symptoms. denies: confusion, chest pain, cough, diaphoresis, fever/chills, headaches, malaise, nausea/vomiting, rash, seizure, shortness of breath, syncope, weakness Treatments Prior to Arrival: none - Related Data Previous Rx's Medication Instructions Recorded Last Taken Type Albuterol Mdi (or & Nicu Only) 1 puff IH QID PRN #1 inha 05/19/16 Unknown Rx [ProAir HFA Inhaler] Aspirin [Aspirin BABY CHEW TAB] 81 mg PO QDAY #30 tab.chew 05/19/16 Unknown Rx Lisinopril [Zestril] 40 mg PO QDAY #30 tablet 05/19/16 Unknown Rx Simvastatin (Nf) [Zocor TAB] 10 mg PO QHS #30 tablet 05/19/16 Unknown Rx amLODIPine 5 mg PO DAILY #30 tablet 05/19/16 Unknown Rx hydroCHLOROthiazide [Hctz] 12.5 mg PO QDAY #30 capsule 05/19/16 Unknown Rx Cyclobenzaprine [Flexeril] 10 mg PO QHS PRN #10 tablet 07/28/19 Unknown Rx Naproxen 500 mg PO Q12H PRN #12 tablet 07/28/19 Unknown Rx Cetirizine HCl [Zyrtec 10mg tab] 10 mg PO DAILY #30 tablet 04/04/21 Unknown Rx Fluticasone [Flonase] 1 spray NS QDAY #1 bottle 04/04/21 Unknown Rx diphenhydrAMINE [Benadryl CAP] 50 mg PO QHS PRN #30 capsule 04/04/21 Unknown Rx predniSONE [Deltasone] 40 mg PO QDAY #10 tab 04/04/21 Unknown Rx Allergies Allergy/AdvReac Type Severity Reaction Status Date / Time No Known Allergies Allergy Verified 01/27/20 18:24 ED Review of Systems ROS: Stated complaint: BURN ON RT SIDE Other details as noted in HPI Constitutional: denies: chills, fever Eyes: denies: eye pain, eye discharge, vision change ENT: congestion. denies: ear pain, throat pain Respiratory: denies: cough, shortness of breath, wheezing Cardiovascular: denies: chest pain, palpitations Endocrine: no symptoms reported Gastrointestinal: denies: abdominal pain, nausea, diarrhea Genitourinary: denies: urgency, dysuria Musculoskeletal: denies: back pain, joint swelling, arthralgia Skin: denies: rash, lesions Neurological: denies: headache, weakness, paresthesias Psychiatric: denies: anxiety, depression Hematological/Lymphatic: denies: easy bleeding, easy bruising ED Past Medical Hx - Past Medical History Hx Hypertension: Yes Hx Congestive Heart Failure: No Hx Diabetes: No Hx Asthma: Yes Hx COPD: No - Surgical History Additional Surgical History: back surgery - Social History Smoking Status: Current Every Day Smoker Substance Use Type: None - Medications Home Medications: Home Medications Medication Instructions Recorded Confirmed Last Taken Type Albuterol Mdi (or & Nicu Only) 1 puff IH QID PRN #1 inha 05/19/16 Unknown Rx [ProAir HFA Inhaler] Aspirin [Aspirin BABY CHEW TAB] 81 mg PO QDAY #30 tab.chew 05/19/16 Unknown Rx Lisinopril [Zestril] 40 mg PO QDAY #30 tablet 05/19/16 Unknown Rx Simvastatin (Nf) [Zocor TAB] 10 mg PO QHS #30 tablet 05/19/16 Unknown Rx amLODIPine 5 mg PO DAILY #30 tablet 05/19/16 Unknown Rx hydroCHLOROthiazide [Hctz] 12.5 mg PO QDAY #30 capsule 05/19/16 Unknown Rx Cyclobenzaprine [Flexeril] 10 mg PO QHS PRN #10 tablet 07/28/19 Unknown Rx Naproxen 500 mg PO Q12H PRN #12 tablet 07/28/19 Unknown Rx Cetirizine HCl [Zyrtec 10mg tab] 10 mg PO DAILY #30 tablet 04/04/21 Unknown Rx Fluticasone [Flonase] 1 spray NS QDAY #1 bottle 04/04/21 Unknown Rx diphenhydrAMINE [Benadryl CAP] 50 mg PO QHS PRN #30 capsule 04/04/21 Unknown Rx predniSONE [Deltasone] 40 mg PO QDAY #10 tab 04/04/21 Unknown Rx ED Physical Exam - General Limitations: No Limitations General appearance: alert, in no apparent distress - Head Head exam: Present: atraumatic, normocephalic, normal inspection - Eye Eye exam: Present: normal appearance, PERRL, EOMI. Absent: scleral icterus, conjunctival injection, nystagmus, periorbital swelling, periorbital tenderness Pupils: Present: normal accommodation. Absent: unequal - ENT ENT exam: Present: normal orophraynx, mucous membranes moist, TM's normal bilaterally, normal external ear exam, other (Grossly congested nasal passages with swollen right nasal turbinates) - Neck Neck exam: Present: normal inspection, full ROM - Respiratory Respiratory exam: Present: normal lung sounds bilaterally. Absent: respiratory distress, wheezes, rales, rhonchi, stridor, chest wall tenderness, accessory muscle use, decreased breath sounds, prolonged expiratory - Cardiovascular Cardiovascular Exam: Present: regular rate, normal rhythm, normal heart sounds. Absent: systolic murmur, diastolic murmur, rubs, gallop - GI/Abdominal GI/Abdominal exam: Present: soft, normal bowel sounds. Absent: tenderness, guarding, hyperactive bowel sounds, hypoactive bowel sounds - Extremities Exam Extremities exam: Present: normal inspection, full ROM, normal capillary refill - Back Exam Back exam: Present: normal inspection, full ROM. Absent: tenderness, CVA tenderness (R), CVA tenderness (L), muscle spasm, paraspinal tenderness, vertebral tenderness - Neurological Exam Neurological exam: Present: alert, oriented X3, CN II-XII intact, normal gait, reflexes normal - Psychiatric Psychiatric exam: Present: normal affect, normal mood - Skin Skin exam: Present: warm, dry, intact, normal color. Absent: rash ED Course Vital Signs 04/04/21 02:08 Temperature 98.7 F Pulse Rate 85 Respiratory 18 Rate Blood Pressure 159/98 O2 Sat by Pulse 99 Oximetry ED Medical Decision Making - Medical Decision Making This is a 50-year-old -[place] male with a history of asthma, obst ructive sleep apnea and hypertension who presents to the ED with complaint of acute onset persistent nasal congestion and a sensation of blocked nasal passages after using CPAP machine about 2 hours ago. In the ED, patient is alert and oriented x3 and is not in any distress but stable, dynamically. Patient the history and physical exam findings, the patient will discharge home on medications for suspected allergic rhinitis and upper respiratory infection. Patient was discharged home and advised to follow-up with his primary care physician in 5 to 7 days for reevaluation or return to the ED immediately if symptoms get worse. - Differential Diagnosis Allergic rhinitis; URI; sinusitis; Critical care attestation.: If time is entered above; I have spent that time in minutes in the direct care of this critically ill patient, excluding procedure time. ED Disposition Clinical Impression: Acute upper respiratory infection Allergic rhinitis Qualifiers: Allergic rhinitis trigger: unspecified Allergic rhinitis seasonality: unspecified Qualified Code(s): J30.9 - Allergic rhinitis, unspecified Acute allergic reaction Qualifiers: Encounter type: initial encounter Qualified Code(s): T78.40XA - Allergy, unspecified, initial encounter Disposition: - TO HOME OR SELFCARE Is pt being admited?: No Does the pt Need Aspirin: No Condition: Stable Instructions: Upper Respiratory Infection, Adult, [id number], Allergic Rhinitis, Adult, [id number], Allergies, Adult, [id number] Additional Instructions: Take medication with food, drink plenty of fluids and follow-up with your primary care physician in 5 to 7 days for reevaluation. Return to the ED immediately if symptoms get worse. Prescriptions: diphenhydrAMINE [Benadryl CAP] 50 mg PO QHS PRN #30 capsule PRN Reason: Swelling predniSONE [Deltasone] 40 mg PO QDAY #10 tab Fluticasone [Flonase] 1 spray NS QDAY #1 bottle Cetirizine HCl [Zyrtec 10mg tab] 10 mg PO DAILY #30 tablet Referrals: [facility] [Provider Group] - 3-5 Days Time of Disposition: 02:43 Print Language: PERSIAN
== END 2021-04-04 03:40 | disposition home or self-care (01) ==
LOC: ED 00:58
DX: T78.40XA Allergy, unspecified, initial encounter (principal); J06.9 Acute upper respiratory infection, unspecified; J30.9 Allergic rhinitis, unspecified; I10 Essential (primary) hypertension; G47.33 Obstructive sleep apnea (adult) (pediatric); F17.200 Nicotine dependence, unspecified, uncomplicated; Z98.890 Other specified postprocedural states; Z79.899 Other long term (current) drug therapy; Y93.89 Activity, other specified
CPT/HCPCS: 99282